=== PATIENT | female | born 1970 | race Two or more races ===

== ENCOUNTER → 2017-01-21 | Outpatient (CLI) | payer BC ==
--- NOTE | ~2017-01-21 | MY29 ---
[facility] A Service of [facility] RADIOLOGY TEXT RESULTS PATIENT: MAY MORSE LOCATION: [facility] : 74 UNIT #: [id number] AGE: [address]: MARK BUCKLEY APRN SEX: F ORDER DR: [id number] [facility] [address] [place], [place] [address] [id number] O MR#: [id number] Acc #: [id number] NAME: MAY MORSE : 1970 SEX: F STUDY DATE/TIME: 01/21/2017 10:53 UNIT: [facility] ROOM: STUDY DESCRIPTION: MY LISANDRO SCREENING W/ CAD BILAT Attending Physician: Kelvin Buckley Aprn Ordering Physician: Kelvin Buckley Aprn Primary Care Physician: Frankie Vásquez M.D. MEDICAL IMAGING REPORT This report is preliminary unless electronic signature is present EXAM Digital screening mammogram 01/21/2017 HISTORY 46-year-old woman, no risk elevation. Annual screen. COMPARISON STUDIES Comparison 04/29/2011, 11/28/2015 FINDINGS Digital imaging of each breast was completed utilizing screening protocol. Review includes FDA-approved CAD device. Breast parenchyma is predominantly fatty replaced bilaterally. Mild residual fibroglandular dominance is noted upper outer quadrant left breast. There is no interval occurring breast mass. There are no suspicious microcalcifications and no architectural deformity. IMPRESSION Negative mammogram. Annual screening recommended. BIRADS 1 Patients over the age of 40 are entered into a reminder system with target due date for the next mammogram. A result letter will also be sent to the patient. BIRADS: 1 - Negative Dictated by... Mason Israel M.D. THIS IS AN ELECTRONICALLY VERIFIED REPORT Mason Israel M.D. at 01/21/2017 3:28 PM Samir [facility] A Service of [facility] RADIOLOGY TEXT RESULTS PATIENT: MAY MORSE [id number] 74 UNIT #: [id number] AGE: [address]: MARK BUCKLEY APRN SEX: F ORDER DR: TD: 01/21/2017 15:23 JOB #: [id number] MEDICAL IMAGING REPORT Page 1 of 1 COPY
== END | disposition home or self-care (01) ==
LOC: CWCC 01-19 11:30
DX: Z12.31 Encounter for screening mammogram for malignant neoplasm of breast (principal)
CPT/HCPCS: G0202

== ENCOUNTER → 2017-04-08 | Outpatient (CLI) | payer BC ==
--- NOTE | ~2017-04-08 | US6 ---
[facility] A Service [facility] RADIOLOGY TEXT RESULTS PATIENT: MAY MORSE LOCATION: [facility] : 74 UNIT #: [id number] AGE: [address]: ROSALIA MELCHOR APRN SEX: F ORDER DR: [id number] [facility] [address] [place], [place] [address] [id number] O MR#: [id number] Acc #: [id number] NAME: MAY MORSE : 1970 SEX: F STUDY DATE/TIME: 04/08/2017 10:59 UNIT: [facility] ROOM: STUDY DESCRIPTION: US Abdominal Limited Ordering Physician: Rojas Melchor M.D. Primary Care Physician: Frankie Vásquez M.D. MEDICAL IMAGING REPORT This report is preliminary unless electronic signature is present EXAM Right upper quadrant abdominal ultrasound INDICATIONS Elevated liver enzyme levels, diagnosed 3 weeks ago. TECHNIQUE Guevara-scale and Doppler imaging of the right upper quadrant. COMPARISON 02/10/2013. FINDINGS Visualized portions of pancreas are unremarkable. Liver measures 15.2 cm, has diffusely increased echotexture. Right kidney measures 11.5 cm and is unremarkable. Common duct measures 3 mm. Previous cholecystectomy. IMPRESSION 1. Increased liver echotexture in keeping with steatosis. 2. Previous cholecystectomy. Dictated by... Jovon Barillas M.D. THIS IS AN ELECTRONICALLY VERIFIED REPORT Jovon Barillas M.D. at 04/09/2017 12:08 PM EED/pcl TD: 04/08/2017 21:21 JOB #: [id number] [facility] A Service [facility] RADIOLOGY TEXT RESULTS PATIENT: MAY MORSE LOCATION: [facility] : 74 UNIT #: [id number] AGE: [address]: ROSALIA MELCHOR APRN SEX: F ORDER DR: MEDICAL IMAGING REPORT Page 1 of 1 COPY
== END | disposition home or self-care (01) ==
LOC: CGUS 10:30
DX: R74.8 Abnormal levels of other serum enzymes (principal); R93.2 Abnormal findings on diagnostic imaging of liver and biliary tract; Z90.49 Acquired absence of other specified parts of digestive tract
CPT/HCPCS: 76705